=== PATIENT | male | born 1935 | race Caucasian/White ===

== ENCOUNTER 2022-08-19 08:46 | Outpatient (CLI) | payer OTHER | END 2022-08-19 23:59 | disposition home or self-care (01) | LOC: RAD 08:46 | PROVIDERS: ATTEND Chiropractor | DX: M17.0 Bilateral primary osteoarthritis of knee (principal); M16.0 Bilateral primary osteoarthritis of hip; M47.816 Spondylosis without myelopathy or radiculopathy, lumbar region; I70.203 Unspecified atherosclerosis of native arteries of extremities, bilateral legs | CPT/HCPCS: 73521; 73564 ==

== ENCOUNTER 2024-04-05 13:20 | Inpatient (IN) | payer MEDICARE, OTHER ==
[~2024-04-05] VITALS: Ht 170.2 cm; Wt 68.2 kg
[2024-04-05 15:25] LABS: BASOPHILS % (AUTO) 0.6 % (0-1); EOSINOPHILS # (AUTO) 0.1 X10'3 (0-0.9); EOSINOPHILS % (AUTO) 1.5 % (0-6); HEMATOCRIT 46.8 % (42.0-52.0); HEMOGLOBIN 15.8 g/dl (14.0-17.9); LYMPHOCYTES # (AUTO) 1.1 X10'3 (1.1-4.8); LYMPHOCYTES % (AUTO) 22.3 % (21-51); MEAN CORPUSCULAR HEMOGLOBIN 32.1 PG (27.0-31.0); MEAN CORPUSCULAR HGB CONC 33.7 g/dL (33.0-36.5); MEAN CORPUSCULAR VOLUME 95.2 FL (78-98); MEAN PLATELET VOLUME 8.1 FL (7.4-10.4); MONOCYTES # (AUTO) 0.6 X10'3 (0-0.9); MONOCYTES % (AUTO) 12.1 % (2-12); NEUTROPHILS # (AUTO) 3.2 X10'3 (1.8-7.7); NEUTROPHILS % (AUTO) 63.5 % (42-75); PLATELET COUNT 164 X10'3 (140-440); RED BLOOD COUNT 4.91 X10'6 (4.70-6.10); RED CELL DISTRIBUTION WIDTH 14.1 % (11.5-14.5); WHITE BLOOD COUNT 5.1 X10'3 (4.5-11.0)
[2024-04-05 15:31] LABS: APTT 27 SECONDS (22-32); INR 1.1 INR; PROTHROMBIN TIME 11.6 SECONDS (9.0-12.0)
[2024-04-05 15:34] LABS: ALBUMIN 4.1 G/DL (3.4-5.0); ALBUMIN/GLOBULIN RATIO 1.3 (1.1-1.5); ALKALINE PHOSPHATASE 55 IU/L (46-116); ANION GAP 10 (8-16); ASPARTATE AMINO TRANSFERASE 26 U/L (10-37); BILIRUBIN,TOTAL 1.4 MG/DL (0.1-1.0); BLOOD UREA NITROGEN 13 MG/DL (7-18); BUN/CREATININE RATIO 12.1 (10.0-20.0); CALCIUM 8.8 MG/DL (8.5-10.1); CHLORIDE 104 MMOL/L (99-107); CREATININE 1.07 MG/DL (0.60-1.10); GLUCOSE 97 MG/DL (70-104); POTASSIUM 3.6 MMOL/L (3.5-5.1); SODIUM 143 MMOL/L (135-145); TOTAL CARBON DIOXIDE 29.4 MMOL/L (24-32); TOTAL PROTEIN 7.2 G/DL (6.4-8.2); eCRCL 46 ML/MIN; eGFR 66 ML/MIN
[2024-04-05 15:44] LABS: FREE T4 (FREE THYROXINE) 0.95 NG/DL (0.73-1.40); MAGNESIUM 2.3 MG/DL (1.5-2.4); PRO BRAIN NATRIURETIC PEPTIDE 2461 PG/ML (0-450)
[2024-04-05 15:48] LABS: ALANINE AMINOTRANSFERASE 15 U/L (12-78)
[2024-04-05 16:19] LABS: BILIRUBIN,URINE NEGATIVE (Neg); CLARITY,URINE CLEAR (Clear); COLOR,URINE YELLOW (Yellow); GLUCOSE, URINE NEGATIVE (Neg); KETONES,URINE NEGATIVE (Neg); LEUKOCYTE ESTERASE ,URINE NEGATIVE (Neg); NITRITES, URINE NEGATIVE (Neg); OCCULT BLOOD,URINE NEGATIVE (Neg); PH,URINE 7.5 (4.8-8.0); PROTEIN,URINE NEGATIVE (Neg); UROBILINOGEN,URINE 0.2 E.U/dL (0.2-1.0)
[2024-04-05 16:20] LABS: UA COLLECTION TYPE OTHER
[2024-04-05] MEDS ORDERED: iohexol 350MG/ML 100ml bottle IV ONE (16:20)
[2024-04-05] MEDS ORDERED: magnesium 4gm in 100ml NS 100 ML IV PRN (20:25)
[2024-04-05] MEDS ORDERED: magnesium hydroxide 30ml (MOM) UD suspension PO PRN (20:25)
[2024-04-05] MEDS ORDERED: magnesium Cl slow-release 64mg tablet PO PRN (20:25)
[2024-04-05] MEDS ORDERED: potassium Cl 20 mEq SR tablet PO PRN ×2 (20:25)
[2024-04-05] MEDS ORDERED: magnesium 2GM in 50ml NS 50 ML IV PRN (20:25)
[2024-04-05] MEDS ORDERED: potassium Cl 40MEQ/1/2NS 520ml 520 ML IV PRN (20:25)
[2024-04-05] MEDS ORDERED: ondansetron/PF 4mg/2ml inj IV PRN (20:25)
[2024-04-05] MEDS ORDERED: acetaminophen 325mg tablet PO PRN (20:25)
[2024-04-05] MEDS ORDERED: mag hydrox/Alum hydrox/simeth 30ml oral suspension PO PRN (20:25)
[2024-04-05 20:39] LABS: MAGNESIUM 2.1 MG/DL (1.5-2.4); POTASSIUM 3.5 MMOL/L (3.5-5.1)
[2024-04-05] MEDS: normal saline 1000ml 1,000 ML IV SCH (21:15)
[2024-04-05 22:10] VITALS: BP 210/103; PULSE 76; RESP 18; TEMP 98.9; O2SAT 98
[2024-04-05] MEDS ORDERED: clopidogrel 75mg tablet PO SCH (22:20)
[2024-04-05] MEDS ORDERED: aspirin 81mg tab.chew PO SCH (22:20)
[2024-04-05 22:30] VITALS: RESP 18; O2SAT 92
[2024-04-05] MEDS: Melatonin 3mg tablet PO ONE (23:07)
[2024-04-05] MEDS: atorvastatin 20mg tablet PO SCH (23:07)
[2024-04-06] VITALS (8 sets, daily range): BP systolic 142–195; BP diastolic 82–99; PULSE 58–76; RESP 12–18; TEMP 97–98.3; O2SAT 93–97
[2024-04-06] MEDS: aspirin 81mg tab.chew PO ONE (00:25)
[2024-04-06 06:22] LABS: BASOPHILS # (AUTO) 0.1 X10'3 (0-0.2); BASOPHILS % (AUTO) 0.9 % (0-1); EOSINOPHILS # (AUTO) 0.1 X10'3 (0-0.9); EOSINOPHILS % (AUTO) 2.1 % (0-6); HEMATOCRIT 45.1 % (42.0-52.0); HEMOGLOBIN 15.4 g/dl (14.0-17.9); LYMPHOCYTES # (AUTO) 1.6 X10'3 (1.1-4.8); LYMPHOCYTES % (AUTO) 26.3 % (21-51); MEAN CORPUSCULAR HEMOGLOBIN 32.4 PG (27.0-31.0); MEAN CORPUSCULAR HGB CONC 34.2 g/dL (33.0-36.5); MEAN CORPUSCULAR VOLUME 94.9 FL (78-98); MONOCYTES # (AUTO) 0.6 X10'3 (0-0.9); MONOCYTES % (AUTO) 10.6 % (2-12); NEUTROPHILS # (AUTO) 3.6 X10'3 (1.8-7.7); NEUTROPHILS % (AUTO) 60.1 % (42-75); PLATELET COUNT 161 X10'3 (140-440); RED BLOOD COUNT 4.76 X10'6 (4.70-6.10); RED CELL DISTRIBUTION WIDTH 14.4 % (11.5-14.5)
[2024-04-06 06:25] LABS: APTT 26 SECONDS (22-32); INR 1.1 INR; PROTHROMBIN TIME 11.4 SECONDS (9.0-12.0)
[2024-04-06 06:32] LABS: ALANINE AMINOTRANSFERASE 12 U/L (12-78); ALBUMIN 3.5 G/DL (3.4-5.0); ALBUMIN/GLOBULIN RATIO 1.2 (1.1-1.5); ALKALINE PHOSPHATASE 48 IU/L (46-116); ANION GAP 5 (8-16); ASPARTATE AMINO TRANSFERASE 21 U/L (10-37); BILIRUBIN,TOTAL 1.3 MG/DL (0.1-1.0); BLOOD UREA NITROGEN 11 MG/DL (7-18); BUN/CREATININE RATIO 12.6 (10.0-20.0); CALCIUM 8.3 MG/DL (8.5-10.1); CHLORIDE 107 MMOL/L (99-107); CHOL/HDL RATIO 2.1 (0.00-4.99); CHOLESTEROL 123 MG/DL (0-200); CREATININE 0.87 MG/DL (0.60-1.10); GLUCOSE 93 MG/DL (70-104); HDL CHOLESTEROL 58 MG/DL (35-60); LDL CHOLESTEROL 59 MG/DL (50-100); MAGNESIUM 2.2 MG/DL (1.5-2.4); PHOSPHORUS 3.3 MG/DL (2.3-4.5); POTASSIUM 3.5 MMOL/L (3.5-5.1); SODIUM 142 MMOL/L (135-145); TOTAL CARBON DIOXIDE 30.1 MMOL/L (24-32); TOTAL PROTEIN 6.5 G/DL (6.4-8.2); TRIGLYCERIDES 46 MG/DL (20-135); eCRCL 57 ML/MIN; eGFR 83 ML/MIN
[2024-04-06] MEDS ORDERED: enoxaparin 40mg/0.4ml syringe SUBCUT SCH (08:00)
[2024-04-06] MEDS: K and/or MAG REPLACEMENT MC SCH (08:00)
[2024-04-06] MEDS: docusate sod 100mg capsule PO SCH (08:52)
[2024-04-06] MEDS: apixaban 5mg tablet PO SCH (08:52)
[2024-04-06] MEDS: aspirin 81mg tab.chew PO SCH (08:53)
[2024-04-06] MEDS ORDERED: BISA10SU97 (15:19)
[2024-04-06] MEDS ORDERED: FINA5TAB11 PO (15:23)
[2024-04-06] MEDS ORDERED: ERGO400C2 PO (15:23)
[2024-04-06] MEDS ORDERED: PYRI-3 PO (15:30)
[2024-04-06] MEDS ORDERED: METO-384 PO (15:30)
[2024-04-06] MEDS ORDERED: SENN-263 PO (15:30)
[2024-04-06] MEDS ORDERED: POLY119P2 PO (15:30)
[2024-04-06] MEDS ORDERED: LEVO25CA4 PO (15:30)
[2024-04-06] MEDS ORDERED: LISI40TA13 PO (15:30)
[2024-04-06] MEDS ORDERED: MAGN400T29 PO (15:30)
[2024-04-06] MEDS ORDERED: HYDR50TA46 PO (15:30)
[2024-04-06] MEDS ORDERED: FLO0.4C PO (15:31)
[2024-04-06] MEDS: hydrALAZINE 20mg/ml inj. IV ONE (18:55)
[2024-04-06] MEDS: tamsulosin 0.4mg capsule PO SCH (19:25)
[2024-04-06] MEDS: hydrALAZINE 25 MG tablet PO SCH (21:33)
[2024-04-07 02:00] VITALS: BP 133/71; PULSE 80; RESP 12; TEMP 97.5; O2SAT 95
[2024-04-07 07:00] VITALS: BP 137/80; PULSE 76; RESP 16; TEMP 98.2; O2SAT 96
[2024-04-07 07:32] LABS: BASOPHILS % (AUTO) 0.7 % (0-1); EOSINOPHILS # (AUTO) 0.2 X10'3 (0-0.9); EOSINOPHILS % (AUTO) 2.7 % (0-6); HEMOGLOBIN 15.5 g/dl (14.0-17.9); LYMPHOCYTES # (AUTO) 1.8 X10'3 (1.1-4.8); LYMPHOCYTES % (AUTO) 31.2 % (21-51); MEAN CORPUSCULAR HEMOGLOBIN 31.9 PG (27.0-31.0); MEAN CORPUSCULAR HGB CONC 33.8 g/dL (33.0-36.5); MEAN CORPUSCULAR VOLUME 94.5 FL (78-98); MEAN PLATELET VOLUME 7.8 FL (7.4-10.4); MONOCYTES # (AUTO) 0.7 X10'3 (0-0.9); MONOCYTES % (AUTO) 12.3 % (2-12); NEUTROPHILS # (AUTO) 3.1 X10'3 (1.8-7.7); NEUTROPHILS % (AUTO) 53.1 % (42-75); PLATELET COUNT 171 X10'3 (140-440); RED BLOOD COUNT 4.87 X10'6 (4.70-6.10); RED CELL DISTRIBUTION WIDTH 14.3 % (11.5-14.5); WHITE BLOOD COUNT 5.9 X10'3 (4.5-11.0)
[2024-04-07 07:44] LABS: APTT 27 SECONDS (22-32); PROTHROMBIN TIME 11.1 SECONDS (9.0-12.0)
[2024-04-07] MEDS: metoprolol succinate 25mg (24-HOUR) SR. Tablet PO SCH (07:59)
[2024-04-07 08:00] VITALS: BP_SYST 137; PULSE 76; RESP 16; O2SAT 96
[2024-04-07] MEDS: lisinopril 20mg tablet PO SCH (08:00)
[2024-04-07 08:01] LABS: ALANINE AMINOTRANSFERASE 12 U/L (12-78); ALBUMIN 3.2 G/DL (3.4-5.0); ALBUMIN/GLOBULIN RATIO 1.1 (1.1-1.5); ALKALINE PHOSPHATASE 45 IU/L (46-116); ANION GAP 8 (8-16); ASPARTATE AMINO TRANSFERASE 20 U/L (10-37); BILIRUBIN,TOTAL 0.9 MG/DL (0.1-1.0); BLOOD UREA NITROGEN 22 MG/DL (7-18); BUN/CREATININE RATIO 21.8 (10.0-20.0); CALCIUM 8.6 MG/DL (8.5-10.1); CHLORIDE 106 MMOL/L (99-107); CREATININE 1.01 MG/DL (0.60-1.10); GLUCOSE 94 MG/DL (70-104); MAGNESIUM 2.1 MG/DL (1.5-2.4); PHOSPHORUS 3.5 MG/DL (2.3-4.5); POTASSIUM 3.3 MMOL/L (3.5-5.1); SODIUM 143 MMOL/L (135-145); TOTAL CARBON DIOXIDE 29.2 MMOL/L (24-32); TOTAL PROTEIN 6.1 G/DL (6.4-8.2); eCRCL 49 ML/MIN; eGFR 70 ML/MIN
[2024-04-07] MEDS: levoTHYROXINE 25mcg tablet PO SCH (08:01)
[2024-04-07] MEDS: finasteride 5mg tablet PO SCH (08:01)
[2024-04-07] MEDS ORDERED: ATOR20TA66 PO (12:05)
[2024-04-07] MEDS ORDERED: ASPI81TA53 PO (12:05)
[2024-04-07] MEDS ORDERED: APIX5TAB3 PO (12:14)
== END 2024-04-07 14:25 | disposition home health service (06) | DRG 66 ==
LOC: ER 13:21 → ED HOLD 20:31 → UNDOADMIN 20:31 → ED HOLD 20:32 → EDBEDREQ 21:24 → PCU 3S 21:55 → ED HOLD 21:55
PROVIDERS: ADMIT Surgery; ATTEND Internal Medicine
PROC: B3251ZZ Computerized Tomography (CT Scan) of Bilateral Common Carotid Arteries using Low Osmolar Contrast (ICD-10-PCS; principal; 2024-04-05)
PROC: B32G1ZZ Computerized Tomography (CT Scan) of Bilateral Vertebral Arteries using Low Osmolar Contrast (ICD-10-PCS; 2024-04-05)
PROC: B32R1ZZ Computerized Tomography (CT Scan) of Intracranial Arteries using Low Osmolar Contrast (ICD-10-PCS; 2024-04-05)
PROC: B3281ZZ Computerized Tomography (CT Scan) of Bilateral Internal Carotid Arteries using Low Osmolar Contrast (ICD-10-PCS; 2024-04-05)
DX: I63.89 Other cerebral infarction (principal); I65.02 Occlusion and stenosis of left vertebral artery; I12.9 Hypertensive chronic kidney disease with stage 1 through stage 4 chronic kidney disease, or unspecified chronic kidney disease; I48.91 Unspecified atrial fibrillation; N18.2 Chronic kidney disease, stage 2 (mild); Z66 Do not resuscitate; E03.9 Hypothyroidism, unspecified; H54.8 Legal blindness, as defined in USA; N40.0 Benign prostatic hyperplasia without lower urinary tract symptoms; E78.5 Hyperlipidemia, unspecified; Z22.7 Latent tuberculosis; Z79.82 Long term (current) use of aspirin; Z79.01 Long term (current) use of anticoagulants; Z79.899 Other long term (current) drug therapy; Z86.15 Personal history of latent tuberculosis infection
CPT/HCPCS: 36415; 70450; 70496; 70498; 70551; 71045; 80053; 80061; 81003; 83036; 83605; 83735; 83880; 84100; 84132; 84439; 84443; 84484; 85025; 85610; 85730; 87040; 87081; 92508; 92616; 93005; 93306; 97110; 97161; 99285; G0378; J3490; J7030; Q9967